=== PATIENT | male | born 2000 | race African-American/Black ===

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

== ENCOUNTER 2024-03-11 21:15 | Emergency (ER) | payer BC, OTHER ==
[~2024-03-11] VITALS: Ht 175.3 cm; Wt 84.1 kg
[~2024-03-11 21:15] MED LIST: DOXY-354 PO; EMTR1TAB53 PO; ONDA-104 PO; RALT400T PO
[2024-03-11 21:19] VITALS: TEMP 99
[2024-03-12] MEDS: ACETAMINOPHEN 500 MG TABLET PO ONE (00:10)
[2024-03-12] MEDS: LIDOCAINE 1% 10 ML VIAL SQ ONE (00:10)
[2024-03-12] MEDS: BACITRACIN 0.9 GM PACKET OINTMENT TP ONE (01:07)
[2024-03-12 01:10] VITALS: BP 118/73; PULSE 62; RESP 18; O2SAT 97
== END 2024-03-12 01:18 | disposition home or self-care (01) ==
LOC: EMS 21:15
DX: S01.01XA Laceration without foreign body of scalp, initial encounter (principal); R51.9 Headache, unspecified; W22.8XXA Striking against or struck by other objects, initial encounter; Y93.89 Activity, other specified; Y92.098 Other place in other non-institutional residence as the place of occurrence of the external cause; Y99.8 Other external cause status
CPT/HCPCS: 99285; 70450; 70486; 96372; J3490

== ENCOUNTER 2024-04-06 13:35 | Emergency (ER) | payer BC, OTHER ==
[~2024-04-06] VITALS: Ht 175.3 cm; Wt 81.8 kg
[2024-04-06 13:45] VITALS: TEMP 98.1
[2024-04-06 14:15] VITALS: BP 112/64; PULSE 61; RESP 17; O2SAT 98
== END 2024-04-06 14:36 | disposition home or self-care (01) ==
LOC: EMS 13:35
DX: S01.81XD Laceration without foreign body of other part of head, subsequent encounter (principal); Z48.02 Encounter for removal of sutures; Z11.3 Encounter for screening for infections with a predominantly sexual mode of transmission; Z79.624 Long term (current) use of inhibitors of nucleotide synthesis; X58.XXXD Exposure to other specified factors, subsequent encounter
CPT/HCPCS: 99282; Z7502